=== PATIENT | female | born 1950 | race American Indian/Alaskan Native ===

== ENCOUNTER 2019-11-27 15:21 | Emergency (ER) | payer OTHER ==
[~2019-11-27] VITALS: Ht 152.4 cm; Wt 65.8 kg
[2019-11-27] MEDS ORDERED: VITAMIN B-650 MG (16:08)
[2019-11-27] MEDS ORDERED: GLIMEPIRIDE2 MG PO (16:08)
[2019-11-27] MEDS ORDERED: LISINOPRIL10 MG PO (16:08)
[2019-11-27] MEDS ORDERED: CALCIUM ACETAT667 MG PO (16:08)
[2019-11-27] MEDS ORDERED: LEVOTHYROXINE50 MCG PO (16:08)
[2019-11-27] MEDS ORDERED: LOVASTATIN20 MG PO (16:08)
[2019-11-27] MEDS ORDERED: VITAMIN D33000 UNIT (16:08)
[2019-11-27] MEDS ORDERED: CLONIDINE HCL 0.1 MG TAB PO NR (16:15)
[2019-11-27] MEDS ORDERED: ACETAMINOPHEN 325 MG TAB PO ONE (16:15)
[2019-11-27] MEDS ORDERED: ACETAMINOPHEN 325 MG TAB ONE (16:21)
[2019-11-27] MEDS ORDERED: CLONIDINE HCL 0.1 MG TAB ONE (16:21)
[2019-11-27 16:26] VITALS: BP 189/86
--- NOTE | 2019-11-27 17:10 | Diagnostic Imaging Report ---
History:Fall Comparison studies: None Technique: Axial images were obtained from the skull base to the vertex. Coronal and sagittal images reconstructed from the axial data. Dose modulation, iterative reconstruction, and/or weight based adjustment of the mA/kV was utilized to reduce the radiation dose to as low as reasonably achievable. Intravenous contrast: None Findings: Scalp/skull: No abnormalities. Extra-axial spaces: No masses. No fluid collections. Brain sulci: Mildly prominent. Ventricles: Mild compensatory dilatation. No hydrocephalus. Parenchyma: Subtle hypodensities in the supratentorial white matter are small vessel ischemic changes. No masses, hemorrhage, acute or chronic cortical vascular insults. Sellar/suprasellar region: No abnormalities. Craniocervical junction: Patent foramen magnum. No Chiari one malformation. Incidental findings: Atherosclerotic calcifications in the carotid siphons . Impression: No acute abnormalities. Chronic findings: 1. Mild generalized volume loss. 2. Mild supratentorial white matter small vessel ischemic changes. Signed by: Dr. Vamsi Logan M.D. on 11/27/2019 5:06 PM
== END 2019-11-27 16:40 | disposition home or self-care (01) ==
LOC: FSED 15:21
DX: S06.0X0A Concussion without loss of consciousness, initial encounter (principal); S00.03XA Contusion of scalp, initial encounter; W18.09XA Striking against other object with subsequent fall, initial encounter; Y92.008 Other place in unspecified non-institutional (private) residence as the place of occurrence of the external cause; I10 Essential (primary) hypertension; E11.9 Type 2 diabetes mellitus without complications; E03.9 Hypothyroidism, unspecified; E78.5 Hyperlipidemia, unspecified
CPT/HCPCS: 70450; 99283